=== PATIENT | male | born 1995 | race African-American/Black ===

== ENCOUNTER 2021-12-03 12:34 | Emergency (ER) | payer OTHER ==
[2021-12-03 13:12] VITALS: BP 103/70; PULSE 61; TEMP 97.8; BMI 23.5
[2021-12-03] MEDS ORDERED: cefTRIAXone SODIUM 1 GM VIAL ONE (13:51)
== END 2021-12-03 14:03 | disposition home or self-care (01) ==
LOC: JERFT 12:34
DX: A54.23 Gonococcal infection of other male genital organs (principal)
CPT/HCPCS: 36415; 87491; 87591; 99284-25